=== PATIENT | female | born 1945 | race Caucasian/White ===

== ENCOUNTER 2021-11-09 18:38 | Inpatient (IN) | payer MEDICARE, OTHER ==
[~2021-11-09] VITALS: Ht 167.6 cm; Wt 85.1 kg
[2021-11-09 20:15] LABS: BASOPHIL 0.2 % (0-2); EOSINOPHIL 0 % (0-7); HCT 44.9 % (37.0-47.0); HGB 14.5 g/dl (12.5-16.0); LYMPHOCYTE 2.1 % (15-48); MCH 29.8 pg (25.0-31.0); MCHC 32.3 g/dL (32.0-36.0); MCV 92.4 fL (78.0-100.0); MONOCYTE 7.7 % (0-12); MPV 11.5 fL (6.0-9.5); NEUTROPHIL 89.2 % (41-80); NRBC 0; PLT 168 K/uL (150-400); RBC 4.86 M/uL (4.20-5.40); RDW 13.7 % (11.5-14.0); WBC 10.5 K/uL (4.0-10.5)
[2021-11-09 20:51] LABS: INFLUENZA A NAA NEGATIVE (NEGATIVE)
[2021-11-09 21:00] LABS: CORONAVIRUS 2019 SARS-COV-2 POSITIVE (NEGATIVE)
[2021-11-09 21:13] LABS: ALBUMIN 3.1 g/dL (3.4-5.0); BILIRUBIN - TOTAL 0.9 mg/dL (0.2-1.0); BUN/CREAT RATIO (CALC) 12.3 RATIO; C-REACTIVE PROTEIN 4.9 mg/dL (<=0.90); CREATININE 1.06 mg/dL (0.51-0.95); MAGNESIUM 2.1 mg/dL (1.8-2.4); POTASSIUM 4.1 mmol/L (3.5-5.1); TOTAL PROTEIN 7.1 g/dL (6.4-8.2)
[2021-11-09 22:05] LABS: BILIRUBIN 1+ mg/dL (NEGATIVE); BLOOD 2+ Ery/uL (NEGATIVE); GLUCOSE (U) NORMAL (NORMAL); LEUKOCYTES TRACE Leu/uL (NEGATIVE); NITRITE POSITIVE (NEGATIVE); PROTEIN 1+ mg/dL (NEGATIVE); SPECIFIC GRAVITY >=1.030 (1.001-1.030)
[2021-11-09 22:06] LABS: CLARITY SLIGHTLY HAZY (CLEAR); COLOR ORANGE (YELLOW)
[2021-11-09 22:19] LABS: BACTERIA 3+; SQUAMOUS EPITHELIAL CELLS RARE
[2021-11-10 08:50] LABS: BASOPHIL 0.2 % (0-2); EOSINOPHIL 0.2 % (0-7); HCT 39.8 % (37.0-47.0); MCH 30.2 pg (25.0-31.0); MCHC 32.7 g/dL (32.0-36.0); MCV 92.6 fL (78.0-100.0); MONOCYTE 12.7 % (0-12); NEUTROPHIL 63.4 % (41-80); NRBC 0; PLT 145 K/uL (150-400); RDW 13.8 % (11.5-14.0); WBC 6.1 K/uL (4.0-10.5)
[2021-11-10 08:54] LABS: INR 1.26 (0.9-1.2); PROTHROMBIN TIME 15.1 SECONDS (11.8-13.4); PTT 41.7 SECONDS (24.4-34.7)
[2021-11-10 09:33] LABS: CKMB 3.2 ng/mL (0.0-3.6)
[2021-11-10 10:57] LABS: ALBUMIN 2.5 g/dL (3.4-5.0); BILIRUBIN - TOTAL 0.4 mg/dL (0.2-1.0); C-REACTIVE PROTEIN 5.7 mg/dL (<=0.90); FT4 (FREE T4) 1.4 ng/dL (0.76-1.46); GLOBULIN (CALCULATION) 3.4 g/dL; MAGNESIUM 2.1 mg/dL (1.8-2.4); PHOSPHORUS 4.2 mg/dL (2.6-4.7); POTASSIUM 3.4 mmol/L (3.5-5.1); TOTAL PROTEIN 5.9 g/dL (6.4-8.2)
--- NOTE | 2021-11-10 15:07 | NUR ---
SPOKE WITH DR. ALMAZAN. HE STATED THAT PATIENT DID NOT HAVE ANY SI. SHE IS CONCERNED REGARDING HER FALLING AND NOT BEING ABLE TO CARE FOR SELF. TC TO GRANDDAUGHTER, ILA COVARRUBIAS AT [phone]. PER ILA, HER GRANDMOTHER FELL ABOUT A MONTH AGO AND WAS IN [facility] IN [place]. SHE KARINA HER GRANDMOTHER HER AND SHE HAS BEEN HAVING TROUBLE WALKING. ILA SAID THE ONLY REASON HER GRANDMOTHER WAS BROUGHT TO THE HOSPITAL WAS DUE TO HER FALLING AND NOT WALKING. NOT BECAUSE SHE HAS COVID. I ADVISED ILA THAT PT/OT HAVE RECOMMENDED INTERMEDIATE FOR HER GRANDMOTHER AND ILA WAS IN AGREEMENT A INTERMEDIATE FACILITY FOR SHORT=-TERM. ADVISED ILA THAT HER GRANDMOTHER IS POS FOR COVID IT WILL BE DIFFICULT FINDING A FACILITY. ILA STATED THAT SHE DID NOT BELIEVE HER GRANDMOTHER HAS COVID. I EXPLAINED THAT SHE DOES HAVE A POS COVID AND WILL REQUIRE A FACIITY THAT ACCEPTS COVID.
[2021-11-11 07:23] LABS: BASOPHIL 0 % (0-2); EOSINOPHIL 0 % (0-7); HCT 42.1 % (37.0-47.0); HGB 13.5 g/dl (12.5-16.0); LYMPHOCYTE 22.1 % (15-48); MCH 29.6 pg (25.0-31.0); MCHC 32.1 g/dL (32.0-36.0); MCV 92.3 fL (78.0-100.0); MPV 11.3 fL (6.0-9.5); NEUTROPHIL 62.4 % (41-80); NRBC 0; PLT 153 K/uL (150-400); RBC 4.56 M/uL (4.20-5.40); RDW 13.5 % (11.5-14.0); WBC 4.4 K/uL (4.0-10.5)
[2021-11-11 08:25] LABS: ALBUMIN 2.5 g/dL (3.4-5.0); BILIRUBIN - TOTAL 0.3 mg/dL (0.2-1.0); BUN/CREAT RATIO (CALC) 18.4 RATIO; CREATININE 0.87 mg/dL (0.51-0.95); GLOBULIN (CALCULATION) 3.7 g/dL; POTASSIUM 3.7 mmol/L (3.5-5.1); TOTAL PROTEIN 6.2 g/dL (6.4-8.2)
--- NOTE | 2021-11-11 15:06 | NUR ---
DR. ALMAZAN THINKS PT MIGHT BENEFIT FROM PSYCHIATRIC CARE. CALLED [facility], DO NO ACCEPT COVID, [facility], NO BEDS AND DO NOT ACCEPT COVID. [facility] ACCEPT[facility] COVID, BUT NO BEDS. ADVISED TO CALL SUNDAY. ULYSSES FROM ROBERT AT [facility]. WILL NOT KNOW IF SHE CAN ACCEPT PT UNTIL SUNDAY. ADVISED DR. ALMAZAN OF ABOVE INFORMATION.
--- NOTE | 2021-11-11 15:27 | NUR ---
MESSAGE FROM [facility] WITH SIGNATURE. SHE ADVISED THAT [facility] MAY HAVE AN OPENING NEXT WEEK.
[2021-11-14 02:34] LABS: HCT 45.2 % (37.0-47.0); HGB 14.7 g/dl (12.5-16.0); MCH 29.6 pg (25.0-31.0); MCHC 32.5 g/dL (32.0-36.0); MCV 90.9 fL (78.0-100.0); MPV 11.1 fL (6.0-9.5); RBC 4.97 M/uL (4.20-5.40); RDW 13.5 % (11.5-14.0); WBC 8.6 K/uL (4.0-10.5)
[2021-11-14 03:02] LABS: ALBUMIN 2.6 g/dL (3.4-5.0); BILIRUBIN - TOTAL 0.2 mg/dL (0.2-1.0); BUN/CREAT RATIO (CALC) 17.4 RATIO; CREATININE 0.86 mg/dL (0.51-0.95); GLOBULIN (CALCULATION) 3.8 g/dL; MAGNESIUM 2.1 mg/dL (1.8-2.4); POTASSIUM 3.3 mmol/L (3.5-5.1); TOTAL PROTEIN 6.4 g/dL (6.4-8.2)
[2021-11-14 03:08] LABS: CKMB 0.7 ng/mL (0.0-3.6)
--- NOTE | 2021-11-14 16:01 | NUR ---
TC FROM PT. GRANDDAUGHTER, ILA. SHE ADVISED THAT SHE DOES NOT WANT HER GRANDMOTHER TO GO TO A NURSING FACILITY, BUT WANTS HER TO BE D/C HOME AND HAVE HH. GRANDDAUGHTER DOES NOT HAVE A PREFERENCE FOR A HH AGENCY. PT WILL NEED A ROLLING WALKER AND 12/20.
[2021-11-14] MEDS ORDERED: ZOLOFT50 MG PO (17:39)
[2021-11-14] MEDS ORDERED: LOPRESSOR25 MG PO ×2 (17:39→20:07)
[2021-11-14] MEDS ORDERED: NYSTATIN 30GM C30 GM TOP (17:39)
[2021-11-14] MEDS ORDERED: DECADRON6 MG PO (17:39)
--- NOTE | 2021-11-14 19:25 | NUR ---
GOT PATIENT D/C PAPER WORK READY, AND WENT OVER WITH PATIENT WITH UNDERSTANDING OF D/C . IV REMOVED, INFOMRED HIM TO TAKE OXYGEN TANKS WITH PATIENT. REPORT GIVEN TO NEXT NURSE GAVIOTA PELLETIER. UNTIL PATIENT RIDE COMES.
--- NOTE | 2021-11-14 19:37 | NUR ---
1919 REPORT GIVEN TO GAVIOTA PELLETIER ON PRIVATE SECRETARY. PT WILL BE GOING HOME WITH LYNN WHEN SHE ARRIVES TO PICK HER UP. ALL DISCHARGE PAPER WORK GIVEN TO PATIENT AND CALLED LYNN INFOMED HER OF DICHARGE. IV REMOVED. AWAITING ON LYNN TO COME TO TAKE HER HOME. WHEEL WALKER AND 12/20 CANE FROM [employer] FOR PATINET TO TAKE WITH HER.
== END 2021-11-14 20:20 | disposition home health service (06) | DRG 177 ==
LOC: FER 18:38 → FMS 23:36
PROVIDERS: Emergency Medicine Emergency Medical Services; Nurse Practitioner; ADMIT Internal Medicine
PROC: XW033E5 Introduction of Remdesivir Anti-infective into Peripheral Vein, Percutaneous Approach, New Technology Group 5 (ICD-10-PCS; principal; 2021-11-09)
PROC: 3E0333Z Introduction of Anti-inflammatory into Peripheral Vein, Percutaneous Approach (ICD-10-PCS; 2021-11-09)
PROC: 8E0ZXY6 Isolation (ICD-10-PCS; 2021-11-10)
DX: U07.1 COVID-19 (principal); I21.4 Non-ST elevation (NSTEMI) myocardial infarction; J12.82 Pneumonia due to coronavirus disease 2019; I48.20 Chronic atrial fibrillation, unspecified; M48.56XA Collapsed vertebra, not elsewhere classified, lumbar region, initial encounter for fracture; N30.01 Acute cystitis with hematuria; I10 Essential (primary) hypertension; F03.90 Unspecified dementia, unspecified severity, without behavioral disturbance, psychotic disturbance, mood disturbance, and anxiety; F32.A Depression, unspecified; R53.1 Weakness; R45.850 Homicidal ideations; B96.20 Unspecified Escherichia coli [E. coli] as the cause of diseases classified elsewhere; M19.90 Unspecified osteoarthritis, unspecified site; Z91.81 History of falling; Z82.49 Family history of ischemic heart disease and other diseases of the circulatory system
CPT/HCPCS: 36415; 70450; 71045; 71250; 72125; 72131; 72148; 73610; 73630; 80053; 80061; 81001; 82553; 82728; 83036; 83605; 83615; 83735; 83880; 84100; 84145; 84439; 84443; 84484; 85025; 85610; 85730; 86140; 87076; 87088; 87186; 93005; 93922; 94640; 97162; 97166; 97530-GP; 97535; C9399; J0360; J0696; J1650; J7040; J7050; J8540; U0002

== ENCOUNTER 2021-12-23 16:52 | Emergency (ER) | payer MEDICARE, OTHER ==
[~2021-12-23 16:52] MED LIST: CIPRO500 MG PO; DECADRON6 MG PO; LOPRESSOR25 MG PO; NORCO 5-325 TA1 EACH PO; NYSTATIN 30GM C30 GM TOP; ZOLOFT50 MG PO
[2021-12-23 18:33] LABS: BASOPHIL 0.7 % (0-2); EOSINOPHIL 2.1 % (0-7); HCT 41.6 % (37.0-47.0); HGB 12.4 g/dl (12.5-16.0); LYMPHOCYTE 27.1 % (15-48); MCH 30.8 pg (25.0-31.0); MCHC 29.8 g/dL (32.0-36.0); MONOCYTE 12.2 % (0-12); MPV 10.6 fL (6.0-9.5); NEUTROPHIL 56.9 % (41-80); NRBC 0; PLT 184 K/uL (150-400); RBC 4.02 M/uL (4.20-5.40); RDW 15.6 % (11.5-14.0); WBC 9.9 K/uL (4.0-10.5)
[2021-12-23 18:34] LABS: BILIRUBIN NEGATIVE (NEGATIVE); BLOOD NEGATIVE Ery/uL (NEGATIVE); CLARITY CLEAR (CLEAR); COLOR YELLOW (YELLOW); GLUCOSE (U) NORMAL (NORMAL); LEUKOCYTES NEGATIVE Leu/uL (NEGATIVE); MCV 103.5 fL (78.0-100.0); NITRITE NEGATIVE (NEGATIVE); PROTEIN NEGATIVE (NEGATIVE); SPECIFIC GRAVITY 1.025 (1.001-1.030); UROBILINOGEN 0.2 mg/dL (0.2-1.0)
[2021-12-23 18:49] LABS: BUN/CREAT RATIO (CALC) 14.4 RATIO; CREATININE 0.97 mg/dL (0.51-0.95); POTASSIUM 3.9 mmol/L (3.5-5.1)
== END 2021-12-23 23:00 | disposition home or self-care (01) ==
LOC: FER 16:52
PROVIDERS: Nurse Practitioner Family
DX: S92.342A Displaced fracture of fourth metatarsal bone, left foot, initial encounter for closed fracture (principal); S92.222A Displaced fracture of lateral cuneiform of left foot, initial encounter for closed fracture; W19.XXXA Unspecified fall, initial encounter
CPT/HCPCS: 36415; 73700; 80048; 81003; 85025; 85379; 93971